=== PATIENT | female | born 1950 | race Caucasian/White ===

== ENCOUNTER → 2016-08-31 | Outpatient (CLI) | payer OTHER | LOC: BRMIMAGING 14:07 | PROVIDERS: ATTEND Internal Medicine | DX: Z13.820 Encounter for screening for osteoporosis (principal); M85.80 Other specified disorders of bone density and structure, unspecified site; Z82.62 Family history of osteoporosis; N95.0 Postmenopausal bleeding; N83.201 Unspecified ovarian cyst, right side | CPT/HCPCS: 76856-PO ==

== ENCOUNTER → 2018-11-05 | Outpatient (CLI) | payer OTHER | LOC: BRMIMAGING 13:31 ==